=== PATIENT | male | born 1945 | race Caucasian/White ===

== ENCOUNTER 2018-03-19 11:55 | Outpatient (CLI) | payer MEDICARE, OTHER | END 2018-03-19 11:56 | disposition home or self-care (01) | LOC: BICRAD 11:55 | PROVIDERS: ATTEND Physician Assistant | DX: J06.9 Acute upper respiratory infection, unspecified (principal); R91.8 Other nonspecific abnormal finding of lung field; I70.0 Atherosclerosis of aorta; I77.819 Aortic ectasia, unspecified site | CPT/HCPCS: 71046 ==

== ENCOUNTER 2021-02-19 08:24 | Outpatient (CLI) | payer MEDICARE, OTHER ==
[2021-02-19] MEDS ORDERED: Iopamidol-370 76% 500 ML 1 ML ONE (09:22)
== END 2021-02-19 08:25 | disposition home or self-care (01) ==
LOC: BICCT 08:24
PROVIDERS: ATTEND Otolaryngology Otolaryngic Allergy
DX: K14.8 Other diseases of tongue (principal); R93.89 Abnormal findings on diagnostic imaging of other specified body structures
CPT/HCPCS: 70491; Q9967

== ENCOUNTER 2021-03-01 13:48 | Outpatient (CLI) | payer MEDICARE, OTHER | END 2021-03-01 13:49 | disposition home or self-care (01) | LOC: ULT 13:48 | PROVIDERS: ATTEND Otolaryngology Otolaryngic Allergy | DX: Z01.818 Encounter for other preprocedural examination (principal); E04.1 Nontoxic single thyroid nodule; Z20.822 Contact with and (suspected) exposure to COVID-19; K14.8 Other diseases of tongue | CPT/HCPCS: 76536; 80048; 85027; 93005; U0003; U0005 ==

== ENCOUNTER 2022-07-06 16:03 | Inpatient (IN) | payer MEDICARE, OTHER ==
[~2022-07-06 16:03] MED LIST: Iopamidol-370 76% 500 ML 1 ML ONE
[2022-07-06 17:03] LABS: #Basophils 0.1 thou/uL (0.0-0.2); #Eosinphils 0.2 thou/uL (0.0-0.7); #Lymphocytes 3.5 thou/uL (1.20-3.40); #Neutrophils 5.7 thou/uL (1.40-6.50); %Basophils 0.7 % (0.0-1.0); %Eosinophils 1.6 % (0.0-10.0); %Lymphocytes 33.5 % (21.0-51.0); %Monocytes 9.6 % (0.0-10.0); %Neutrophils 54.6 % (42.0-75.0); Hemoglobin 14.9 g/dL (14.0-18.0); Mean Corpuscular HGB CONC 34.2 g/dL (32.0-36.0); Mean Corpuscular Hemoglobin 32.3 pg (27.0-31.0); Mean Corpuscular Volume 94.5 fl (78.0-98.0); Mean Platelet Volume 10.5 fL (7.4-10.4); Platelet Count 268 10x3/uL (130-400); RBC Distribution Width 12.3 % (11.5-14.5); Red Blood Cell (RBC) Count 4.61 mill/uL (4.70-6.10); White Blood Cell (WBC) Count 10.4 10x3/uL (4.8-10.8)
[2022-07-06 17:27] LABS: ALT (SGPT) 39 U/L (8-55); AST (SGOT) 47 U/L (5-34); Alkaline Phosphatase 140 U/L (40-110); Anion Gap 13 mmol/L (10-20); BUN (Urea Nitrogen) 15 mg/dL (8.4-25.7); Bilirubin, Total 0.5 mg/dL (0.2-1.2); Calc. Creatinine Clearance 0 mL/min (70-130); Calcium 9.5 mg/dL (7.8-10.44); Carbon Dioxide 29 mmol/L (23-31); Chloride 101 mmol/L (98-107); Estimated GFR 89; Globulin 3.8 g/dL (2.4-3.5); Glucose 111 mg/dL (83-110); Potassium 3.2 mmol/L (3.5-5.1); Protein, Total 7.8 g/dL (5.8-8.1); Sodium 140 mmol/L (136-145)
[2022-07-06] MEDS ORDERED: Ondansetron PF 4 MG/2 ML Vial IVP PRN (19:29)
[2022-07-06] MEDS ORDERED: Ipratropium/Albuterol 3 ML NEB EZPAP PRN (19:36)
[2022-07-06] MEDS ORDERED: Potassium Chloride 20 MEQ TAB PO SCH (19:45)
[2022-07-06 20:20] LABS: Magnesium 0.7 mg/dL (1.6-2.6)
[2022-07-06 21:54] VITALS: BMI 27.8
[2022-07-06] MEDS ORDERED: Losartan 25 MG TAB PO SCH (22:45)
[2022-07-06] MEDS: Atorvastatin Calcium 20 MG TAB PO SCH (23:05)
[2022-07-07] MEDS ORDERED: Electrolyte Replacement Protocol 1 EACH FS PRN (00:45)
[2022-07-07] MEDS ORDERED: Magnesium Sulfate In Water 4 GM in Premix Bag 1 BAG IVPB SCH (00:45)
[2022-07-07] MEDS ORDERED: Magnesium Sulfate 4 GM in Sodium Chloride 0.9% 250 ML 250 ML IVPB SCH (00:45)
[2022-07-07 05:13] LABS: #Basophils 0.1 thou/uL (0.0-0.2); #Eosinphils 0.3 thou/uL (0.0-0.7); #Lymphocytes 2.9 thou/uL (1.20-3.40); #Monocytes 0.8 thou/uL (0.11-0.59); %Basophils 0.8 % (0.0-1.0); %Lymphocytes 40.9 % (21.0-51.0); %Neutrophils 42.2 % (42.0-75.0); Hemoglobin 13.7 g/dL (14.0-18.0); Mean Corpuscular HGB CONC 34.3 g/dL (32.0-36.0); Mean Corpuscular Hemoglobin 32.5 pg (27.0-31.0); Mean Corpuscular Volume 94.6 fl (78.0-98.0); Mean Platelet Volume 10.3 fL (7.4-10.4); Platelet Count 252 10x3/uL (130-400); Red Blood Cell (RBC) Count 4.22 mill/uL (4.70-6.10)
[2022-07-07 05:39] LABS: Anion Gap 14 mmol/L (10-20); BUN (Urea Nitrogen) 12 mg/dL (8.4-25.7); Calc. Creatinine Clearance 110 mL/min (70-130); Calcium 8.9 mg/dL (7.8-10.44); Carbon Dioxide 26 mmol/L (23-31); Chloride 104 mmol/L (98-107); Estimated GFR 94; Glucose 103 mg/dL (83-110); Potassium 3.1 mmol/L (3.5-5.1); Sodium 141 mmol/L (136-145)
[2022-07-07] MEDS ORDERED: Potassium Chloride 20 MEQ TAB PO SCH (08:00)
[2022-07-07] MEDS ORDERED: Magnesium 2 GM/50 ML(in water) 2 GM in Premix Bag 1 BAG IVPB SCH (08:00)
[2022-07-07] MEDS: Acetaminophen 325 MG TAB PO PRN ×2 (08:14→16:47)
[2022-07-07] MEDS: Hydroxychloroquine Sulfate 200 MG TAB PO SCH (08:16)
[2022-07-07] MEDS: Losartan 25 MG TAB PO SCH (08:18)
[2022-07-07] MEDS: Apixaban 5 MG TAB PO SCH ×2 (08:18→20:25)
[2022-07-07] MEDS: Clopidogrel Bisulfate 75 MG TAB PO SCH (08:19)
[2022-07-07] MEDS: Hydrochlorothiazide 25 MG TAB PO SCH (08:19)
[2022-07-07] MEDS: Multivit, Therapeutic 1 TAB PO SCH (09:09)
[2022-07-07] MEDS ORDERED: Ipratropium/Albuterol 3 ML NEB NEB PRN (09:53)
[2022-07-07] MEDS: DorzolamidE/Timolol 2%/0.5% Ophth Soln 10 ml Bottle EA EYE SCH ×2 (10:44→20:25)
[2022-07-07] MEDS: Mometasone/Formoterol 200/5 60 PUFF INH SCH (18:55)
[2022-07-07] MEDS: Atorvastatin Calcium 20 MG TAB PO SCH (20:25)
[2022-07-08 05:15] LABS: Magnesium 1.7 mg/dL (1.6-2.6); Potassium 3.7 mmol/L (3.5-5.1)
[2022-07-08] MEDS: Mometasone/Formoterol 200/5 60 PUFF INH SCH ×2 (08:02→20:04)
[2022-07-08] MEDS: Clopidogrel Bisulfate 75 MG TAB PO SCH (08:56)
[2022-07-08] MEDS: DorzolamidE/Timolol 2%/0.5% Ophth Soln 10 ml Bottle EA EYE SCH ×2 (08:56→20:26)
[2022-07-08] MEDS: Apixaban 5 MG TAB PO SCH ×2 (08:56→20:26)
[2022-07-08] MEDS: Hydrochlorothiazide 25 MG TAB PO SCH (08:57)
[2022-07-08] MEDS: Hydroxychloroquine Sulfate 200 MG TAB PO SCH (08:57)
[2022-07-08] MEDS: Losartan 25 MG TAB PO SCH (08:58)
[2022-07-08] MEDS: Multivit, Therapeutic 1 TAB PO SCH (08:59)
[2022-07-08] MEDS: Acetaminophen 325 MG TAB PO PRN (09:12)
[2022-07-08] MEDS: Cephalexin 250 MG CAP PO SCH ×3 (12:28→20:27)
[2022-07-08] MEDS ORDERED: Amlodipine 10 MG TAB PO SCH (12:30)
[2022-07-08] MEDS ORDERED: Furosemide 20 MG/2 ML VIAL SLOW IVP SCH (14:45)
[2022-07-08] MEDS: Atorvastatin Calcium 20 MG TAB PO SCH (20:27)
[2022-07-09 04:59] LABS: Hemoglobin 14.3 g/dL (14.0-18.0); Mean Corpuscular HGB CONC 33.4 g/dL (32.0-36.0); Mean Corpuscular Hemoglobin 32.1 pg (27.0-31.0); Mean Corpuscular Volume 95.9 fl (78.0-98.0); Mean Platelet Volume 10.1 fL (7.4-10.4); Platelet Count 246 10x3/uL (130-400); RBC Distribution Width 12.3 % (11.5-14.5); Red Blood Cell (RBC) Count 4.45 mill/uL (4.70-6.10); White Blood Cell (WBC) Count 8.8 10x3/uL (4.8-10.8)
[2022-07-09 05:16] LABS: Anion Gap 10 mmol/L (10-20); BUN (Urea Nitrogen) 13 mg/dL (8.4-25.7); Calc. Creatinine Clearance 99 mL/min (70-130); Carbon Dioxide 29 mmol/L (23-31); Chloride 103 mmol/L (98-107); Estimated GFR 91; Glucose 107 mg/dL (83-110); Magnesium 1.5 mg/dL (1.6-2.6); Potassium 3.7 mmol/L (3.5-5.1); Sodium 138 mmol/L (136-145)
[2022-07-09] MEDS: Mometasone/Formoterol 200/5 60 PUFF INH SCH (08:02)
[2022-07-09 08:05] VITALS: BP 153/80; TEMP 98.3
[2022-07-09] MEDS: DorzolamidE/Timolol 2%/0.5% Ophth Soln 10 ml Bottle EA EYE SCH (08:49)
[2022-07-09] MEDS: Losartan 25 MG TAB PO SCH (08:51)
[2022-07-09] MEDS: Hydroxychloroquine Sulfate 200 MG TAB PO SCH (08:52)
[2022-07-09] MEDS: Cephalexin 250 MG CAP PO SCH (08:52)
[2022-07-09] MEDS: Apixaban 5 MG TAB PO SCH (08:52)
[2022-07-09] MEDS: Clopidogrel Bisulfate 75 MG TAB PO SCH (08:52)
[2022-07-09] MEDS: Multivit, Therapeutic 1 TAB PO SCH (08:52)
[2022-07-09] MEDS: Hydrochlorothiazide 25 MG TAB PO SCH (08:52)
[2022-07-09] MEDS ORDERED: Amlodipine 5 MG TAB PO SCH (09:00)
[2022-07-09] MEDS ORDERED: Magnesium Oxide 400 MG TAB PO SCH (09:00)
[2022-07-14] MEDS ORDERED: Apixaban 5 MG TAB PO SCH ×2 (09:00→21:00)
== END 2022-07-09 10:03 | disposition home or self-care (01) | DRG 176 ==
LOC: ERS 16:03 → 2SW 19:29 → OBSVTOIN 07-07 13:20
PROVIDERS: ADMIT Internal Medicine; ATTEND Internal Medicine
DX: I26.99 Other pulmonary embolism without acute cor pulmonale (principal); Z20.822 Contact with and (suspected) exposure to COVID-19; I25.10 Atherosclerotic heart disease of native coronary artery without angina pectoris; I10 Essential (primary) hypertension; E78.5 Hyperlipidemia, unspecified; M06.9 Rheumatoid arthritis, unspecified; E87.6 Hypokalemia; D86.9 Sarcoidosis, unspecified; E83.42 Hypomagnesemia; Z88.0 Allergy status to penicillin; Z79.01 Long term (current) use of anticoagulants; Z86.718 Personal history of other venous thrombosis and embolism; Z86.711 Personal history of pulmonary embolism; Z79.899 Other long term (current) drug therapy; Z79.51 Long term (current) use of inhaled steroids; Z90.49 Acquired absence of other specified parts of digestive tract; Z95.5 Presence of coronary angioplasty implant and graft; Z87.891 Personal history of nicotine dependence
CPT/HCPCS: 36415; 71045; 71275; 80048; 80053; 83735; 83880; 84132; 84484; 85025; 85027; 93005; 93306; 93970; 94664; 96365; 96366; 96372; G0378; J1650; J1940; J3475; Q9967; U0003; U0005

== ENCOUNTER 2023-05-22 08:28 | Outpatient (CLI) | payer MEDICARE, OTHER | END 2023-05-22 08:29 | disposition home or self-care (01) | LOC: MRI 08:28 | PROVIDERS: ATTEND Family Medicine | DX: M47.26 Other spondylosis with radiculopathy, lumbar region (principal) | CPT/HCPCS: 72148 ==

== ENCOUNTER 2023-09-12 08:54 | Emergency (ER) | payer MEDICARE, OTHER ==
[2023-09-12 09:58] LABS: #Eosinphils 0.2 thou/uL (0.0-0.7); #Monocytes 0.7 thou/uL (0.11-0.59); #Neutrophils 3.2 thou/uL (1.40-6.50); %Basophils 0.7 % (0.0-1.0); %Eosinophils 3.9 % (0.0-10.0); %Lymphocytes 25.3 % (21.0-51.0); %Monocytes 12.1 % (0.0-10.0); %Neutrophils 57.6 % (42.0-75.0); Hematocrit 41.9 % (42.0-52.0); Hemoglobin 14.6 g/dL (14.0-18.0); Mean Corpuscular HGB CONC 34.8 g/dL (32.0-36.0); Mean Corpuscular Hemoglobin 32.4 pg (27.0-31.0); Mean Corpuscular Volume 92.9 fl (78.0-98.0); Mean Platelet Volume 11.3 fL (7.4-10.4); Platelet Count 256 10x3/uL (130-400); RBC Distribution Width 13.4 % (11.5-14.5); Red Blood Cell (RBC) Count 4.51 mill/uL (4.70-6.10)
[2023-09-12 10:13] LABS: ALT (SGPT) 71 U/L (8-55); AST (SGOT) 47 U/L (5-34); Albumin 3.8 g/dL (3.4-4.8); Alkaline Phosphatase 190 U/L (40-110); Anion Gap 12 mmol/L (10-20); BUN (Urea Nitrogen) 19 mg/dL (8.4-25.7); Bilirubin, Total 0.6 mg/dL (0.2-1.2); Calc. Creatinine Clearance 0 mL/min (70-130); Calcium 9.9 mg/dL (7.8-10.44); Carbon Dioxide 30 mmol/L (23-31); Chloride 102 mmol/L (98-107); Estimated GFR 86; Globulin 3.5 g/dL (2.4-3.5); Glucose 151 mg/dL (83-110); Lipase 28 U/L (8-78); Potassium 3.9 mmol/L (3.5-5.1); Protein, Total 7.3 g/dL (5.8-8.1); Sodium 140 mmol/L (136-145)
[2023-09-12] MEDS ORDERED: Meclizine HCl 25 MG TAB ONE (10:21)
== END 2023-09-12 12:27 | disposition home or self-care (01) ==
LOC: ERS 08:54
DX: R42 Dizziness and giddiness (principal); I10 Essential (primary) hypertension; E78.00 Pure hypercholesterolemia, unspecified; Z79.899 Other long term (current) drug therapy
CPT/HCPCS: 70450; 71045; 80053; 83690; 84484; 85025; 93005

== ENCOUNTER 2024-02-10 07:57 | Outpatient (CLI) | payer MEDICARE, OTHER ==
[2024-02-10] MEDS ORDERED: Magnevist 469MG/ML 20 ML VIAL ONE (13:43)
== END 2024-02-10 07:58 | disposition home or self-care (01) ==
LOC: BICMRI 07:57
PROVIDERS: ATTEND Family Medicine
DX: R27.0 Ataxia, unspecified (principal); J34.89 Other specified disorders of nose and nasal sinuses; R90.89 Other abnormal findings on diagnostic imaging of central nervous system; K11.8 Other diseases of salivary glands
CPT/HCPCS: 70553; 82565; A9579